=== PATIENT | male | born 1960 | race Caucasian/White ===

== ENCOUNTER → 2019-07-29 | Outpatient (CLI) | payer OTHER ==
[~2019-07-29] VITALS: Ht 182.9 cm; Wt 90.7 kg
[~2019-07-29] MED LIST: BENICAR40 MG PO; CARVEDILOL25 MG PO; CENTRUM SILVER1 EAC4 PO; FISH OIL 1,0001 EAC9 PO; GLUCOSAMINE CH1 EAC2 PO; HYDROCHLOROTH12.5 M2 PO; LISINOPRIL20 MG PO; PRAVACHOL20 MG PO
--- NOTE | 2019-07-31 17:06 | PATH ---
[facility] [place] [address] PATHOLOGY RPT PROCEDURE Name: SPIKE DAHL [id number] Ad[facility]: 07/29/19 Date of : 58 Discharge: Report #: [id number] Path Case #: [id number] [facility] Accession Number: [id number] . 01 Material submitted: . PART A: cecum - BIOPSY OF CECUM TO R/O ULCERATIVE COLITIS PART B: colon - POLYP AT SIGMOID COLON. Modifiers: sigmoid PART C: rectosigmoid junction - RANDOM BIOPSIES OF RECTO-SIGMOID TO R/O ULCERATIVE COLITIS PART D: rectum - RANDOM BIOPSIES OF RECTUM TO R/O ULCERATIVE COLITIS . 01 Clinical history: . Preop DX: Rectal bleeding Postop DX: Colitis, rectal bleeding A. r/o ulcerative colitis C. r/o ulcerative colitis D. r/o ulcerative colitis . 02 Diagnosis: A. Large intestinal mucosa, cecum, endoscopic biopsy: - Mild to moderate active colitis associated with crypt abscess formation. - Negative for dysplasia or malignancy. (See comment) . B. Polyp, at sigmoid colon, endoscopic biopsy: - Tubular adenoma. - Negative for high grade dysplasia. - Negative for active colitis. . C. Large intestinal mucosa, rectosigmoid, endoscopic biopsy: - Moderate to marked active colitis with crypt abscess formation and architectural abnormalities. - Negative for dysplasia or malignancy. (See comment) . D. Large intestinal mucosa, rectum, endoscopic biopsy: - Mild to moderate active colitis associated with architectural abnormalities. - Negative for dysplasia or malignancy. (See comment) . (IUV:mml; 07/31/2019) [facility] 07/31/2019 1329 Local . 02 Comment: Examination of the "cecum", "rectosigmoid", and "rectum" biopsy tissues shows a markedly expanded lamina propria with lymphocytes as well as [address] [address] PATHOLOGY RPT PROCEDURE Name: SPIKE DAHL Room #: REG [facility].#: [id number] Admission: 07/29/19 Date of : 58 Discharge: Report #: [id number] Path Case #: [id number] plasma cells. Active surface ulceration is present within the rectum biopsy tissue. In addition, all of the biopsy tissues show cryptitis, crypt abscess formation as well as architectural abnormalities. Granulomatous inflammation is not identified. There are no viral inclusions present. Overall findings are suggestive of a chronic active colitis and the findings are suggestive of inflammatory bowel disease (Crohn's disease as well as ulcerative colitis). In addition, diverticulitis, as well as medication-induced colitis are in the differential diagnosis. Please correlate clinically and with endoscopic findings. . (IUV:mml; 07/31/2019) . 02 Electronically signed: . Mariajose Alvarado MD, Pathologist NPI- [id number] . 01 Gross description: . A. Received in formalin labeled "HeshamSpike , BX of cecum to r/o ulcerative colitis," are two segments of quiñones-brown soft tissue measuring 0.2 x 0.2 x 0.1 cm and 0.4 x 0.3 x 0.2 cm in greatest dimensions. The specimen is submitted entirely in cassette A1. . B. Received in formalin labeled "Spike Dahl Jr, polyp at sigmoid colon," are two segments of pale quiñones soft tissue measuring 0.4 x 0.2 x 0.1 cm and 0.3 x 0.3 x 0.3 cm in greatest dimensions. The specimen is submitted entirely in cassette B1. . C. Received in formalin labeled "HeshamSpike Jr, random bx's of recto-sigmoid to r/o UC," are four fragments of quiñones-brown soft tissue measuring 0.7 x 0.7 x 0.2 cm in aggregate dimensions and ranging from 0.3 to 0.4 cm in maximum dimension. The specimen is submitted entirely in cassette C1. . D. Received in formalin labeled "HeshamSpike , random bx's of rectum to r/o UC," are five segments of quiñones-brown soft tissue measuring 1.1 x 0.5 x 0.1 cm in aggregate dimensions and ranging from 0.3 to 0.6 cm in maximum dimension. The specimen is submitted entirely in cassette D1. ([facility]; 07/30/2019) XDC/XDC 07/30/2019 1239 Local . 02 Pathologist provided ICD-10: K52.9, D12.5, K62.5 . 02 CPT . 336621, 678310, 204278, 168787 Specimen Comment: A courtesy copy of this report has been sent to [phone], [phone] [address] PATHOLOGY RPT PROCEDURE Name: SPIKE DAHL [facility]#: [id number] Admission: 07/29/19 Date of : 58 Discharge: Report #: [id number] Path Case #: [id number] Specimen Comment: [id number] Specimen Comment: Report sent to and Performed at: 01 [facility] [address], [place], [place] [id number] MD Jann Turcios MD Phone: [phone] Performed at: [address] [id number] MD Mariajose Alvarado MD Phone: [phone]
--- NOTE | 2019-08-05 08:11 | P ---
[facility] [place] [address] [place] [address] PROCEDURE REPORT Name: SPIKE BROOKS JR Room #: [facility]#: [id number] Admission: 07/29/19 Attend Phys: Pepe James Discharge: Date of : 58 Report #: [id number] THIS REPORT FOR: //name// CC: Pepe Aguilar DATE OF SERVICE: 07/29/2019 PROCEDURE PERFORMED: Colonoscopy with biopsies. HISTORY OF PRESENT ILLNESS: The patient is a 58-year-old male with history of bright red blood per rectum as well as mucus and fecal urgency. This began in June of this year. He had a colonoscopy apparently 5 years ago that was negative. No family history of colon cancer. He denies any anorectal pain in general. He does report some mild right lower quadrant abdominal pain at times. DESCRIPTION OF PROCEDURE: The risks and benefits of the procedure were explained to the patient, those risks including but not limited to bleeding, perforation and the risk of sedation. He understood these risks and gave informed consent. Sedation was given using propofol per anesthesia. Next, a digital rectal exam was initially performed, which was normal other than there appears to be a sebaceous cyst approximately 1 cm in diameter in the perianal region just below the scrotum. It is not acutely inflamed. This appears to be chronic. Next, using a standard Olympus colonoscope, the scope was placed in the patient's anus and advanced under direct vision to the cecum. There overall prep was excellent. In the cecum, near the appendiceal orifice was a mild area of colitis was noticed. Biopsies were obtained. The rest of the cecum was normal. The ileocecal valve was normal. The terminal ileum was intubated and normal in appearance. The ascending, transverse and descending colon were normal. Starting in the distal sigmoid colon, at 20 cm, a diffuse moderate colitis, likely consistent with ulcerative colitis was noted. This extended down into the rectum. Multiple biopsies were obtained in both of these areas. No anal fissure or hemorrhoids were noted. The scope was then withdrawn and the procedure terminated. The patient tolerated the procedure well. A 4 mm sessile polyp was also noted in the sigmoid colon proximal to where the colitis was seen. This was removed by cold forceps. IMPRESSION: 1. Colitis involving the distal sigmoid colon and rectum. Suspect this represents ulcerative colitis. Biopsies were obtained. 2. Mild area of colitis near the appendiceal orifice. 3. Small sigmoid colon polyp. RECOMMENDATIONS: 1. Await biopsy results. [address] [address] PROCEDURE REPORT Name: SPIKE BROOKS JR Room #: REG [facility]#: [id number] Admission: 07/29/19 Attend Phys: Pepe James Discharge: Date of : 58 Report #: [id number] 2. If biopsies are consistent with ulcerative colitis, we will discuss options with the patient likely start mesalamine therapy in the near future. Thank you for allowing me to participate in his care. <ELECTRONICALLY SIGNED> By: Pepe Lerner MD 08/05/19 0811 1010 2320 Pepe Lerner MD /nt
== END | disposition home or self-care (01) ==
LOC: GI 08:47
DX: R10.31 Right lower quadrant pain (principal); K52.9 Noninfective gastroenteritis and colitis, unspecified; D12.5 Benign neoplasm of sigmoid colon; I10 Essential (primary) hypertension; E78.5 Hyperlipidemia, unspecified; Z98.890 Other specified postprocedural states; Z79.899 Other long term (current) drug therapy
CPT/HCPCS: 62110; 62900

== ENCOUNTER → 2021-05-18 | Day surgery (SDC) | payer BC, OTHER ==
[~2021-05-18] VITALS: Ht 182.9 cm; Wt 200.9 kg
[~2021-05-18] MED LIST changes: +HYDROCHLOROTHIA25 M1 PO; +HYDROCODON-ACE1 EAC7 PO; +MESALAMINE1.2 GM PO
[2021-05-18 12:50] LABS: CALCIUM 8.9 mg/dL (8.5-10.1); CREATININE 1.2 mg/dL (0.7-1.3); POTASSIUM 3.3 mmol/L (3.5-5.1)
[2021-05-18 13:05] VITALS: BP 147/86
--- NOTE | 2021-05-18 14:21 | EKG ---
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: CORDELL : 1960 Requested By: Arthur Ricardo Order Number: [id number] MD: Adelfo Lehman Measurements Intervals [place] Rate: 88 P: 29 AR: 145 QRS: -46 QRSD: 99 T: 33 QT: 380 QTc: 460 Interpretive Statements Sinus rhythm LAD, consider left anterior fascicular block Probable anteroseptal infarct, old Compared to ECG 12/22/2015 06:48:37 Myocardial infarct finding now present Electronically Signed On 05-18-2021 14:20:53 CDT by Adelfo Lehman [email or web address] <ELECTRONICALLY SIGNED> By: Adelfo Lehman MD, [facility] 05/18/21 1420 1209 1209 Adelfo Lehman MD, FACC /EPI
[2021-05-18 16:02] VITALS: BP 147/86
--- NOTE | 2021-05-23 17:07 | PATH ---
[facility] [address] [place] [address] PATHOLOGY RPT PROCEDURE Name: SPIKE DAHL [facility].#: [id number] Admission: 05/18/21 Date of : 58 Discharge: Report #: [id number] Path Case #: [id number] [facility] Accession Number: [id number] . 01 Material submitted: . PART A: perineum - PERINEAL SUBCUTANEOUS MASS PART B: inguinal area - RIGHT INGUINAL MASS. Modifiers: right PART C: chest - CHEST MASS PART D: axilla - RIGHT AXILLA MASS. Modifiers: right PART E: arm - RIGHT UPPER ARM MASS. Modifiers: right, upper . 01 Clinical history: . EXCISION MASS . 02 Diagnosis: A. Skin and subcutaneous tissue, perineal subcutaneous mass, excision: - Epidermal inclusion cyst. . B. Skin and subcutaneous tissue, right inguinal mass, excision: - Epidermal inclusion cyst. . C. Skin and subcutaneous tissue, chest mass, excision: - Ruptured epidermal inclusion cyst. . D. Skin and subcutaneous tissue, right axilla mass, excision: - Epidermal inclusion cyst. . E. Subcutaneous tissue, right upper arm mass, excision: - Angiolipoma. (SCA:lisy; 05/22/2021) QMS 05/22/2021 0920 Local . 02 Electronically signed: . Carlitos Stevenson DO, Pathologist NPI- [id number] . 01 Gross description: . A. The specimen is received in formalin, labeled "Spike Dahl Jr, perineal subcutaneous mass". It consists of an unoriented skin ellipse (3.5 x 0.9 cm) with an underlying, intact cystic mass (4.0 x 2.7 x 2.5 cm). The epidermal surface appears quiñones-rodríguez, wrinkled and hairbearing. The resection surface is inked black. Sectioning reveals white-yellow friable contents. Data Migration Lead sections are submitted in A1. . B. The specimen is received in formalin, labeled "Spike Dahl Jr, right inguinal mass". It consists of an unoriented skin ellipse (1.5 x 1.1 cm) with an underlying, intact cystic mass (1.5 x 1.3 x 1.2 cm). [place] [address] PATHOLOGY RPT PROCEDURE Name: SPIKE DAHL JR Room #: REG [facility]..#: [id number] Admission: 05/18/21 Date of : 58 Discharge: Report #: [id number] Path Case #: [id number] epidermal surface appears quiñones, wrinkled and hairbearing. The resection surface is inked black. Sectioning reveals rodríguez-quiñones friable contents. Data Migration Lead sections are submitted in B1. . C. The specimen is received in formalin, labeled "Spike Dahl Jr, chest mass". It consists of an unoriented skin ellipse measuring 3.0 x 1.5 and excised to a depth of 1.3 cm. The epidermal surface appears quiñones, wrinkled and hairbearing. The resection surface is inked black. Sectioning reveals intact cystic structure (1.5 x 1.0 x 1.0 cm) filled with quiñones-rodríguez focally hemorrhagic friable contents. Data Migration Lead sections are submitted in C1. . D. The specimen is received in formalin, labeled "Spike Dahl Jr, right axilla mass". It consists of an unoriented skin ellipse (1.5 x 0.6) with an underlying, intact cystic mass (2.3 x 1.8 x 1.7 cm). The epidermal surface is quiñones, wrinkled and hairbearing. The resection surface is inked black. Sectioning reveals quiñones-white friable contents. Data Migration Lead sections are submitted in D1. . E. The specimen is received in formalin, labeled "Spike Dahl Jr, right upper arm mass". It consists of a quiñones-yellow, irregular fatty soft tissue segment measuring 1.7 x 1.5 x 0.9 cm. The external surface is inked black. Sectioning reveals quiñones-yellow lobulated cut surfaces. Data Migration Lead sections are submitted in E1. (MRF; 05/19/2021) MFE/MFE 05/19/[address] [place] [address] . 02 Pathologist provided ICD-10: L72.0, D17.30 . 02 CPT . 646013, 823151, 278574, 527557, 934738 Specimen Comment: A courtesy copy of this report has been sent to [phone] Specimen Comment: [phone] Specimen Comment: Report sent to / DR COTTRELL Performed at: [address] [place] [address] [address], [place], [place] [id number] MD Rip Knowles MD Phone: [phone] Performed at: [address], [place], [place] [id number] MD Sandeep Allen MD Phone: [phone]
--- NOTE | 2021-05-25 15:53 | O ---
[facility] [place] [address] OPERATIVE REPORT Name: SPIKE BROOKS JR Room #: REG [facility].#: [id number] Admission: 05/18/21 Attend Phys: Arthur Ricardo MD Discharge: Date of : 58 Report #: [id number] THIS REPORT FOR: cc: Spike Aguilar MD, John R. MD Franey,Arthur Billy MD ~ cc: Spike Aguilar MD DATE OF SERVICE: 05/18/2021 PATIENT OF: Dr. Arthur Ricardo and Dr. Spike Aguilar. PREOPERATIVE DIAGNOSIS: Multiple subcutaneous masses of the perineum measuring 4.5 x 2.5 cm, right inguinal area measuring 2.5 x 2 cm, chest measuring 4 cm x 2 cm, right axilla measuring 2.5 x 3.5 cm and right upper arm measuring 2 cm x 1.5 cm. POSTOPERATIVE DIAGNOSIS: Multiple subcutaneous masses of the perineum measuring 4.5 x 2.5 cm, right inguinal area measuring 2.5 x 2 cm, chest measuring 4 cm x 2 cm, right axilla measuring 2.5 x 3.5 cm and right upper arm measuring 2 cm x 1.5 cm. PROCEDURES: Excision of perineum, right inguinal chest, right axilla and right upper arm subcutaneous masses with complex layered closure of the perineum and chest. SURGEON: Arthur Ricardo MD ANESTHESIA: Local IV sedation. DESCRIPTION OF PROCEDURE: The patient was brought to the operating room and placed on the operating table in the supine position. Sequential compression devices were in place for DVT prophylaxis. The patient underwent IV sedation and was then placed in the lithotomy position with the candy cane stirrups. Perineum and right inguinal area were then prepped and draped in a sterile fashion. Skin and subcutaneous tissue around the 4.5 x 2.5 cm perineal mass was infiltrated with 0.5% Marcaine and 1% Xylocaine with epinephrine. Elliptical skin incision was performed around this mass using #15 scalpel blade. It was completely excised using the Metzenbaum scissors and sent as specimen to pathology. Deep and superficial subcutaneous tissue was then reapproximated using simple interrupted 2-0 chromic sutures and the skin then closed with interrupted vertical mattress 4-0 nylon sutures. The right inguinal skin and subcutaneous cystic mass was then infiltrated with the same local mixture and this 2.5 x 2 cm right inguinal skin and subcutaneous mass was excised after making an elliptical incision with a #15 scalpel blade and the mass was dissected free using the Metzenbaum scissors. That skin was then closed using [address] [address] OPERATIVE REPORT Name: SPIKE BROOKS Room #: REG [facility].#: [id number] Admission: 05/18/21 Attend Phys: Arthur Ricardo MD Discharge: Date of : 58 Report #: [id number] interrupted vertical mattress 4-0 nylon sutures. Both of those wounds were dressed with triple antibiotic ointment, Telfa, 4 x 4 gauze, sponge and tape. The patient was then placed in the supine position and the chest was then prepped and draped in a sterile fashion. Skin and subcutaneous tissue was once again infiltrated with 0.5% Marcaine, 1% Xylocaine with epinephrine. An area of 4.2 x 2 cm on the chest was excised using #15 scalpel blade. Hemostasis obtained using the electrocautery. The mass was sent to pathology and meticulous hemostasis was checked and obtained using the electrocautery. The deep subcutaneous tissue was then reapproximated using 2-0 chromic sutures and 2-0 Vicryl sutures. Skin was then closed using interrupted vertical mattress 4-0 nylon sutures and the wound dressed with antibiotic ointment, Telfa, 4 x 4 gauze, sponge and tape. The right axilla and upper arm were then prepped and draped in a sterile fashion. The right axillary area was infiltrated with the 0.5% Marcaine, 1% Xylocaine with epinephrine. Elliptical skin incision was performed over the right axillary mass measuring 2.5 x 3.5 cm using a #15 scalpel blade. The area and mass was excised using the Metzenbaum scissors and hemostasis was obtained using electrocautery. The mass was sent as specimen to pathology and the wound was then closed with interrupted vertical mattress 4-0 nylon sutures and dressed with 4 x 4 gauze, sponge, Telfa antibiotic ointment and tape. The right posterior lateral upper arm was then once again prepped and draped in a sterile fashion and infiltrated with same local mixture. This 2 x 1.5 cm subcutaneous mass was completely excised and sent to pathology. Wound was closed in one layer of interrupted vertical mattress 4-0 nylon sutures and the wound dressed with antibiotic ointment, Telfa, 4 x 4 gauze, sponge and tape. The patient was then awakened from the IV sedation and taken to recovery room in good condition. Estimated blood loss was approximately 20 mL total and the patient tolerated the procedure well. All sponge, lap and instrument counts were correct x2. <ELECTRONICALLY SIGNED> By: Arthur Ricardo MD 05/25/21 1553 1449 1749 Arthur Ricardo MD /nt
== END | disposition home or self-care (01) ==
LOC: OR 09:45
PROVIDERS: ATTEND Surgery
DX: L72.0 Epidermal cyst (principal); D17.21 Benign lipomatous neoplasm of skin and subcutaneous tissue of right arm; I10 Essential (primary) hypertension; E78.5 Hyperlipidemia, unspecified; Z98.890 Other specified postprocedural states; Z79.899 Other long term (current) drug therapy; Z20.822 Contact with and (suspected) exposure to COVID-19
CPT/HCPCS: 50010; 50101; 50386; 50403; 56524; 56526; 62110; 62850; 62900; 70005